=== PATIENT | female | born 1955 | race African-American/Black ===

== ENCOUNTER → 2018-05-09 | Day surgery (SDC) | payer OTHER ==
[2018-05-08 15:33] VITALS: BMI 31.1
[2018-05-09 10:39] VITALS: TEMP 98.4
[2018-05-09 11:27] VITALS: BP 125/67; PULSE 61
--- NOTE | 2018-05-13 17:37 | PATH ---
Surgical Pathology Report Patient Name: JOSEPH RIVERA [facility] Rec. #: [id number] /Age/Gender: 1955 (Age: 62) / F Account: [id number] Location: [facility]-ENDOSCOPY Taken: 05/09/2018 Received: 05/09/2018 Reported: 05/13/2018 Physicians: Melissa Fletcher M.D. Specimen(s) Received A: ASCENDING COLON POLYP B: POLYP SIGMOID C: RECTAL POLYP Clinical History Colon screening Postoperative diagnosis: Diverticulosis, polyps Final Diagnosis A. ASCENDING COLON, POLYP, POLYPECTOMY: POLYPOID COLONIC MUCOSA WITH PROMINENT LYMPHOID AGGREGATE. B. SIGMOID COLON, POLYP, POLYPECTOMY: TUBULAR ADENOMA. C. RECTUM, POLYP, POLYPECTOMY: HYPERPLASTIC POLYP. Electronically Signed Yumiko Lafleur M.D. Gross Description A. Received in formalin, labeled "biopsy polyp ascending colon" is a anderson, irregular portion of soft tissue measuring 0.2 cm. in greatest dimension. The specimen is submitted in toto in one cassette. B. Received in formalin, labeled "polyp sigmoid colon" is a anderson, irregular portion of soft tissue measuring 0.4 cm. in greatest dimension. The specimen is submitted in toto in one cassette. C. Received in formalin, labeled "biopsy rectal polyp" is a anderson, irregular portion of soft tissue measuring 0.3 cm. in greatest dimension. The specimen is submitted in toto in one cassette. [id number]/09/[id number]
== END | disposition home or self-care (01) ==
LOC: JASU-ENDO 08:43
PROVIDERS: ATTEND Internal Medicine Gastroenterology
PROC: 0DBK8ZX Excision of Ascending Colon, Via Natural or Artificial Opening Endoscopic, Diagnostic (ICD-10-PCS; 2018-05-09)
PROC: 0DBP8ZX Excision of Rectum, Via Natural or Artificial Opening Endoscopic, Diagnostic (ICD-10-PCS; 2018-05-09)
PROC: 0DBN8ZX Excision of Sigmoid Colon, Via Natural or Artificial Opening Endoscopic, Diagnostic (ICD-10-PCS; principal; 2018-05-09 10:30)
DX: Z12.11 Encounter for screening for malignant neoplasm of colon (principal); D12.2 Benign neoplasm of ascending colon; D12.5 Benign neoplasm of sigmoid colon; K62.1 Rectal polyp; K57.30 Diverticulosis of large intestine without perforation or abscess without bleeding
CPT/HCPCS: 88305-TC

== ENCOUNTER 2022-04-18 04:17 | Day surgery (SDC) | payer OTHER ==
[2022-04-16 10:46] VITALS: BMI 29.3
[2022-04-18 10:06] VITALS: TEMP 98.1
[2022-04-18 12:56] VITALS: BP 150/85; PULSE 64; RESP 12
== END 2022-04-18 14:33 | disposition home or self-care (01) ==
LOC: JASU-ENDO 04:17
PROVIDERS: ATTEND Internal Medicine Gastroenterology
PROC: 0DB98ZX Excision of Duodenum, Via Natural or Artificial Opening Endoscopic, Diagnostic (ICD-10-PCS; 2022-04-18)
PROC: 0DB78ZX Excision of Stomach, Pylorus, Via Natural or Artificial Opening Endoscopic, Diagnostic (ICD-10-PCS; 2022-04-18)
PROC: 0DB68ZX Excision of Stomach, Via Natural or Artificial Opening Endoscopic, Diagnostic (ICD-10-PCS; 2022-04-18)
PROC: 0DJD8ZZ Inspection of Lower Intestinal Tract, Via Natural or Artificial Opening Endoscopic (ICD-10-PCS; principal; 2022-04-18 11:00)
DX: Z12.11 Encounter for screening for malignant neoplasm of colon (principal); Z86.010 Personal history of colon polyps; K29.51 Unspecified chronic gastritis with bleeding; K44.9 Diaphragmatic hernia without obstruction or gangrene; B96.81 Helicobacter pylori [H. pylori] as the cause of diseases classified elsewhere
CPT/HCPCS: 43239; G0105; 88305-TC; 88341-TC; 88342-TC